=== PATIENT | male | born 1955 | race Caucasian/White ===

== ENCOUNTER 2023-02-21 20:21 | Emergency (ER) | payer OTHER ==
[2023-02-21] MEDS ORDERED: Lidocaine 1% with EPINEPHrine 1:100,000 50 ML MDV SUBCUT ONE (20:35)
[2023-02-21] MEDS ORDERED: Diphtheria,Pertussis(Acell),Tetanus Vaccine 0.5 ML Syringe IM ONE (20:35)
[2023-02-21] MEDS ORDERED: Bacitracin Oint 1 GM U/D Packet TOP ONE (20:35)
== END 2023-02-21 22:59 | disposition home or self-care (01) ==
LOC: JP.ED 20:21
DX: S81.011A Laceration without foreign body, right knee, initial encounter (principal); Z23 Encounter for immunization; W10.2XXA Fall (on)(from) incline, initial encounter
CPT/HCPCS: 12002; 73562-RT; 90471; 90715; 99283-25